=== PATIENT | male | born 1965 | race Caucasian/White ===

== ENCOUNTER 2016-12-25 17:10 | Emergency (ER) | payer BC, MEDICARE ==
[2016-12-25 17:16] VITALS: BP 117/73; PULSE 86; RESP 18; TEMP 97.7; O2SAT 98
--- NOTE | 2016-12-25 18:10 | C.PDOC ---
History Of Present Illness 51 y/o male presents to the ED with complains of pain to bottom right foot x1 week. Pt reports wearing cheap sneakers while hiking and woke up the next day with pain to the ball of right foot. Pt denies trauma. Pt reports hasn't been able to tolerate weight bear at the area and has been changing the way he walks to avoid irritation. Pt uses cane intermittently due to lower back pain but has been using it more often due to foot pain. Today pain is worse with swelling. Pt has been doing epsom salt soaks, no medications taken. Pt takes tramadol for back pain occasionally but not for this issue. Denies redness, fever, chills , weakness, numbness or any other complaints. Time Seen by Provider: 12/25/16 17:53 Chief Complaint (Nursing): Lower Extremity Problem/Injury History Per: Patient History/Exam Limitations: no limitations Onset/Duration Of Symptoms: Days Current Symptoms Are (Timing): Worse Severity: Moderate Recent travel outside of the [place]: No - Ankle/Foot Currently Unable To: Bear Weight Past Medical History Reviewed: Historical Data, Nursing Documentation, Vital Signs Vital Signs: Last Vital Signs Temp 97.7 F 12/25/16 17:13 Pulse 86 12/25/16 17:13 Resp 18 12/25/16 17:13 BP 117/73 12/25/16 17:13 Pulse Ox 98 12/25/16 18:16 - Medical History PMH: Back Problems, HTN Surgical History: Appendectomy Family History: States: Unknown Family Hx - Social History Hx Tobacco Use: No Hx Alcohol Use: No Hx Substance Use: No - Immunization History Hx Tetanus Toxoid Vaccination: No Hx Influenza Vaccination: No Hx Pneumococcal Vaccination: No Review Of Systems Except As Marked, All Systems Reviewed And Found Negative. Constitutional: Negative for: Fever, Chills Musculoskeletal: Positive for: Foot Pain (right foot pain with swelling, no redness) Neurological: Negative for: Weakness, Numbness Physical Exam - Physical Exam Appears: Non-toxic, No Acute Distress Skin: Warm, Dry, No Rash, No Ecchymosis, Other (no calluses, no puncture wounds or erythema, no lesions) Head: Atraumatic, Normacephalic Extremity: Tenderness (at the ball of right foot over 2nd, 3rd and 4th toe; rest of foot nontender), Capillary Refill (<2 seconds), No Deformity, Swelling ( right foot mild generalized) Neurological/Psych: Oriented x3, Normal Speech, Normal Motor, Normal Sensation ED Course And Treatment O2 Sat by Pulse Oximetry: 98 (room air) Pulse Ox Interpretation: Normal Medical Decision Making Medical Decision Making: Questionable plantar irritation. Ordered percocet for pain in ED and ortho boot. Instructed patient to treat pain with tramadol PRN and follow up with [facility] teacher. Disposition Counseled Patient/Family Regarding: Diagnosis, Need For Followup - Disposition Referrals: [facility] [Other] Disposition: HOME/ ROUTINE Disposition Time: 18:09 Condition: IMPROVED Additional Instructions: TAKE TRAMADOL DIRECTED FOR PAIN. POST-OP SHOE NEEDED treat your ball of foot pain with the following non-surgical methods. Stretch your Achilles tendon and strengthen your foot muscles. These exercises help decrease the pressure on your forefeet. Use metatarsal supports such as Properly fitting, supportive footwear. Arch supports Metatarsal pads Shock absorbing shoe insoles and inserts Orthotics Lessen any strenuous activities that involve placing too much weight on your feet, such as jogging or jumping. Use icing or cold therapy. Use anti-inflammatory medication such as ibuprofen or naproxen. Avoid shoes with high heels Instructions: Plantar Fasciitis (ED), Tendinitis (ED) - Clinical Impression Clinical Impression: Metatarsalgia of right foot - Scribe Statement The provider has reviewed the documentation as recorded by the Tutuibyifan Edmondson Provider Attestation: All medical record entries made by the Tutuibyifan were at my direction and personally dictated by me. I have reviewed the chart and agree that the record accurately reflects my personal performance of the history, physical exam, medical decision making, and the department course for this patient. I have also personally directed, reviewed, and agree with the discharge instructions and disposition.
[2016-12-25] MEDS ORDERED: Oxycodone/Acetaminophen 5/325 mg Tab PO STA (18:17)
[2016-12-25] MEDS ORDERED: Oxycodone/Acetaminophen 5/325 mg Tab ONE (18:22)
== END 2016-12-25 18:26 | disposition home or self-care (01) ==
LOC: C.ER 17:10
DX: M77.41 Metatarsalgia, right foot (principal)

== ENCOUNTER 2017-01-06 08:48 | Emergency (ER) | payer MEDICARE ==
[2017-01-06 09:05] VITALS: BP 108/75; PULSE 89; RESP 18; TEMP 98.8; O2SAT 97
--- NOTE | 2017-01-06 09:45 | C.PDOC ---
History Of Present Illness 51 y/o male presents to ED with complaints having a tick on the left upper back , with some discomfort, first noticed today, due to discomfort. pt sts it wasn' t there last night.. Patient reports going camping 1 week ago, did not notice any ticks on himself since then until this morning. Patient denies numbness, fever, chills or any other complaints at this time. Time Seen by Provider: 01/06/17 09:12 Chief Complaint (Nursing): Abnormal Skin Integrity History Per: Patient History/Exam Limitations: no limitations Onset/Duration Of Symptoms: Days Current Symptoms Are (Timing): Still Present Past Medical History Reviewed: Historical Data, Nursing Documentation, Vital Signs Vital Signs: Last Vital Signs Temp 98.8 F 01/06/17 09:01 Pulse 89 01/06/17 09:01 Resp 18 01/06/17 09:01 BP 108/75 01/06/17 09:01 Pulse Ox 97 01/06/17 14:29 - Medical History PMH: Arthritis, Back Problems, HTN Surgical History: Appendectomy Family History: States: Unknown Family Hx - Social History Hx Tobacco Use: No Hx Alcohol Use: Yes Hx Substance Use: No - Immunization History Hx Tetanus Toxoid Vaccination: No Hx Influenza Vaccination: No Hx Pneumococcal Vaccination: No Review Of Systems Constitutional: Negative for: Fever, Chills Cardiovascular: Negative for: Chest Pain Respiratory: Negative for: Shortness of Breath Gastrointestinal: Negative for: Nausea, Vomiting, Diarrhea Physical Exam - Physical Exam Appears: Non-toxic, No Acute Distress Skin: Normal Color, Warm Head: Atraumatic, Normacephalic Oral Mucosa: Moist Respiratory: No Rales, No Rhonchi, No Wheezing Gastrointestinal/Abdominal: Soft, No Tenderness, No Guarding, No Rebound Extremity: Normal ROM, No Deformity, Other (3x3 area of erythema on left upper back with tick at center) Neurological/Psych: Oriented x3, Normal Motor, Normal Sensation, Normal Reflexes ED Course And Treatment O2 Sat by Pulse Oximetry: 97 (RA) Pulse Ox Interpretation: Normal Medical Decision Making Medical Decision Making: tick fairly flat, removed with tweezers; 2 mm area of skin pulled off when pulling tick off, no mouth parts noted left in skin. wound cleansed with soap and water and betadine. tick sent to laboratory for analysis. Disposition Counseled Patient/Family Regarding: Diagnosis, Need For Followup, Rx Given - Disposition Referrals: Timothy Ruby MD [Staff Provider] - Disposition: HOME/ ROUTINE Disposition Time: 09:43 Condition: IMPROVED Additional Instructions: Take doxycycline as prescribed; makes oyur skin more sun sensitive. Watch bite area for any signs of infection. Follow up with your PMD in a few days. Prescriptions: Doxycycline Hyclate 100 mg PO BID #28 capsule Instructions: Tick Bite (ED) Forms: General Discharge Instructions - Clinical Impression Clinical Impression: Tick bite of back - PA / [employer] [employer] / Resident Statement MD/DO has reviewed & agrees with the documentation as recorded. - Scribe Statement The provider has reviewed the documentation as recorded by the Lauren Brito All medical record entries made by the Lauren were at my direction and personally dictated by me. I have reviewed the chart and agree that the record accurately reflects my personal performance of the history, physical exam, medical decision making, and the department course for this patient. I have also personally directed, reviewed, and agree with the discharge instructions and disposition.
== END 2017-01-06 09:54 | disposition home or self-care (01) ==
LOC: C.ER 08:48
DX: S20.462A Insect bite (nonvenomous) of left back wall of thorax, initial encounter (principal); W57.XXXA Bitten or stung by nonvenomous insect and other nonvenomous arthropods, initial encounter

== ENCOUNTER 2017-04-09 23:02 | Emergency (ER) | payer MEDICARE ==
[2017-04-09 23:12] VITALS: O2SAT 96
[2017-04-09 23:30] LABS: BASO # 0.1 K/uL (0.0-0.2); BASO % 0.6 % (0.0-2.0); EOS # 0.3 K/uL (0.0-0.7); EOS % 2.9 % (0.0-4.0); HEMATOCRIT 39.4 % (35.0-51.0); LYMPH # 3.1 K/uL (1.0-4.3); LYMPH % 28.5 % (20.0-40.0); MEAN CELL VOLUME 88.1 fL (80.0-94.0); MEAN CORPUSCULAR HEMOGLOBIN 29.3 pg (27.0-31.0); MEAN CORPUSCULAR HGB CONC 33.3 g/dL (33.0-37.0); MEAN PLATELET VOLUME 8.9 fL (7.2-11.7); MONO # 0.9 K/uL (0.0-0.8); MONO % 8.6 % (0.0-10.0); RED CELL DISTRIBUTION WIDTH 14.5 % (11.5-14.5)
[2017-04-09 23:34] LABS: ALB/GLOB RATIO 1.1 (1.0-2.1); ALKALINE PHOSPHATASE 133 U/L (38-126); ALT/SGPT 249 U/L (21-72); AST/SGOT 163 U/L (17-59); BILIRUBIN,TOTAL 0.8 mg/dL (0.2-1.3); BLOOD UREA NITROGEN 15 mg/dL (9-20); CALCIUM 9.3 mg/dl (8.6-10.4); CARBON DIOXIDE 25 mmol/L (22-30); CHLORIDE 98 mmol/L (98-107); GFR AFRICAN-AMERICAN > 60; GLUCOSE,RANDOM 90 mg/dL (75-110); SODIUM 138 mmol/L (132-148); TOTAL PROTEIN 7.9 g/dL (6.3-8.3)
[2017-04-09] MEDS ORDERED: Sodium Chloride 0.9% 1,000 ML IV ONE (23:53)
--- NOTE | 2017-04-09 23:55 | C.PDOC ---
History Of Present Illness 51 year old male who presents to the ER with a complaint of right sided abdominal pain that began this afternoon, associated with nausea. Denies vomiting, fever, or diarrhea. Chief Complaint (Nursing): Abdominal Pain History Per: Patient History/Exam Limitations: no limitations Onset/Duration Of Symptoms: Hrs Current Symptoms Are (Timing): Still Present Location Of Pain/Discomfort: RUQ, Epigastric Radiation Of Pain To:: None Quality Of Discomfort: Unable To Describe Associated Symptoms: Nausea. denies: Fever, Vomiting, Diarrhea Exacerbating Factors: None Alleviating Factors: None Recent travel outside of the [place]: No Past Medical History Reviewed: Historical Data, Nursing Documentation, Vital Signs Vital Signs: Last Vital Signs Temp 98.2 F 04/10/17 02:27 Pulse 81 04/10/17 02:27 Resp 20 04/10/17 02:27 BP 105/67 04/10/17 02:27 Pulse Ox 96 04/10/17 02:29 - Medical History PMH: Arthritis, Back Problems, Gall Bladder Disease (Gall Stones), HTN Surgical History: Appendectomy Family History: States: Unknown Family Hx - Social History Hx Tobacco Use: No Hx Alcohol Use: Yes Hx Substance Use: No - Immunization History Hx Tetanus Toxoid Vaccination: No Hx Influenza Vaccination: No Hx Pneumococcal Vaccination: No Review Of Systems Constitutional: Negative for: Fever Cardiovascular: Negative for: Chest Pain, Palpitations Respiratory: Negative for: Shortness of Breath Gastrointestinal: Positive for: Nausea, Abdominal Pain. Negative for: Vomiting , Diarrhea Physical Exam - Physical Exam Appears: Non-toxic, Other (Moderate distress) Skin: Normal Color, Warm, Dry Head: Atraumatic, Normacephalic Oral Mucosa: Moist Neck: Normal, Supple Chest: Symmetrical, No Tenderness Cardiovascular: Rhythm Regular, No Murmur Respiratory: Normal Breath Sounds, No Rales, No Rhonchi, No Wheezing Gastrointestinal/Abdominal: Soft, Tenderness (RUQ, Epigastric) Neurological/Psych: Oriented x3, Normal Speech, Normal Cognition ED Course And Treatment - Laboratory Results Result Diagrams: 04/09/17 23:20 04/09/17 23:20 ECG: Interpreted By Me, Viewed By Me ECG Interpretation: Normal Interpretation Of ECG: Sinus rhythmn with sinus arrythmia, normal tracings Rate From EC O2 Sat by Pulse Oximetry: 96 (Room air) Pulse Ox Interpretation: Normal - CT Scan/US Abdominal US Other Rad Studies (CT/US): Read By Radiologist, Radiology Report Reviewed CT/US Interpretation: FINDINGS: Limitations: The study is extremely limited due to reported patient obesity. Liver: The liver is felt to be echogenic and mildly enlarged. Gallbladder: The gallbladder is mildly distended. Dependent calculi. The gallbladder wall is not. thickened. The sonographic Wells's sign is reportedly negative. Common bile duct: Unremarkable as visualized. No dilation. Pancreas: The pancreas is obscured. Right kidney: Unremarkable. No hydronephrosis. Aorta: The aorta and IVC are difficult to evaluate. IMPRESSION : Cholelithiasis without sonographic evidence of acute cholecystitis. Additional findings as described above. Progress Note: Blood work, abdominal US, and urinalysis ordered. Dilaudid, zofran, and IV fluids administered. Disposition Counseled Patient/Family Regarding: Diagnosis - Disposition Referrals: [facility] [Outside] Disposition: HOME/ ROUTINE Disposition Time: 02:24 Condition: IMPROVED Prescriptions: Amoxicillin/Potassium Clav [Augmentin 500-125 Tablet] 1 each PO Q8 #20 tablet traMADol/Acetaminophen [Ultracet 325 MG-37.5 MG] 1 tab PO Q6 #14 tab Instructions: Biliary Colic (ED), Gallstones (ED) Forms: [employer] (Syrian) - Clinical Impression Clinical Impression: Abdominal pain, Gall bladder stones, Gall bladder pain - Scribe Statement The provider has reviewed the documentation as recorded by the Scribe Hipolito Mills All medical record entries made by the Scribe were at my direction and personally dictated by me. I have reviewed the chart and agree that the record accurately reflects my personal performance of the history, physical exam, medical decision making, and the department course for this patient. I have also personally directed, reviewed, and agree with the discharge instructions and disposition.
[2017-04-10] MEDS ORDERED: Sodium Chloride 0.9% 1,000 ML ONE
[2017-04-10 02:27] LABS: RBC URINE < 1 /hpf (0-3); URINE BILIRUBIN NEGATIVE (NEGATIVE); URINE BLOOD NEGATIVE (NEGATIVE); URINE COLOR Yellow (YELLOW); URINE GLUCOSE (UA) NORMAL (Normal); URINE KETONE NEGATIVE (NEGATIVE); URINE LEUKOCYTE ESTERASE NEG Leu/uL (Negative); URINE PROTEIN NEGATIVE (NEGATIVE); URINE UROBILINOGEN NORMAL mg/dL (0.2-1.0); WBC URINE 3 /hpf (0-5)
[2017-04-10 02:28] VITALS: BP 105/67; PULSE 81; RESP 20; TEMP 98.2
--- NOTE | 2017-04-10 08:50 | US ---
Right upper quadrant abdominal ultrasound History: Abdominal pain. Comparison: None available. Technique: Real-time sonography was performed through the right upper quadrant of the abdomen. Findings: Study limited secondary to prominent patient motion and large patient body habitus. Liver: Prominent. 19 centimeters in length. Increased echogenicity suggestive for fatty infiltration versus hepatic parenchymal disease. Clinical correlation. Gallbladder: Mildly distended. Multiple dependant calculi. Normal wall thickness of 2.3 millimeters. Negative sonographic Wells's sign. Common bile duct measures 5 millimeters, within normal limits. Pancreas not well visualized. Limited visualization of the aorta and IVC. Right kidney: 11.2 x 5.5 x 5.5 centimeters. No calculi or hydronephrosis. Impression: Limited study secondary to large patient body habitus. Prominent liver with diffuse increased echogenicity suggestive for fatty infiltration versus hepatic parenchymal disease. Clinical correlation. Cholelithiasis. Limited visualization of the pancreas, aorta, and IVC. These findings were preliminarily reported at 1:26 a.m. on 04/10/[address] Brenda Crowell from [facility].
== END 2017-04-10 03:03 | disposition home or self-care (01) ==
LOC: C.ER 23:02
DX: K80.20 Calculus of gallbladder without cholecystitis without obstruction (principal); R10.11 Right upper quadrant pain
CPT/HCPCS: 76705; 80053; 81001; 83690; 85025; 96361; 96374; 96375; 99285; J1170; J2405; J7040

== ENCOUNTER 2017-04-11 00:18 | Emergency (ER) | payer MEDICARE ==
[2017-04-11 00:24] VITALS: RESP 18; TEMP 97.9
[2017-04-11] MEDS ORDERED: Sodium Chloride 0.9% 1,000 ML IV ONE (00:53)
[2017-04-11] MEDS ORDERED: Sodium Chloride 0.9% 1,000 ML ONE (01:03)
[2017-04-11] MEDS ORDERED: Morphine 4 MG/ML VIAL ONE ×2 (01:03→02:00)
[2017-04-11 01:06] LABS: BASO # 0.1 K/uL (0.0-0.2); BASO % 0.7 % (0.0-2.0); EOS # 0.4 K/uL (0.0-0.7); EOS % 4.2 % (0.0-4.0); HEMATOCRIT 38.2 % (35.0-51.0); LYMPH # 2.9 K/uL (1.0-4.3); LYMPH % 28.5 % (20.0-40.0); MEAN CELL VOLUME 88.3 fL (80.0-94.0); MEAN CORPUSCULAR HEMOGLOBIN 29.5 pg (27.0-31.0); MEAN CORPUSCULAR HGB CONC 33.4 g/dL (33.0-37.0); MEAN PLATELET VOLUME 8.9 fL (7.2-11.7); MONO % 9.8 % (0.0-10.0); RED CELL DISTRIBUTION WIDTH 14.3 % (11.5-14.5); WHITE BLOOD COUNT 10.3 K/uL (4.8-10.8)
[2017-04-11 01:11] VITALS: PULSE 72; O2SAT 96
--- NOTE | 2017-04-11 01:11 | C.PDOC ---
History Of Present Illness 51 year old male who presents to the ER with a complaint of RUQ pain radiating to the back since approximately 22:30. Patient states he took tramadol with no relief to pain. Patient was seen in the ER yesterday for the same symptoms and was diagnosed with gallstones. Patient reports he took the antibiotics he melinda prescribed; denies fever or chills. Time Seen by Provider: 04/11/17 00:44 Chief Complaint (Nursing): Abdominal Pain History Per: Patient History/Exam Limitations: no limitations Onset/Duration Of Symptoms: Hrs Current Symptoms Are (Timing): Still Present Location Of Pain/Discomfort: RUQ Radiation Of Pain To:: Back Quality Of Discomfort: Unable To Describe Associated Symptoms: denies: Fever, Chills Exacerbating Factors: None Alleviating Factors: None Recent travel outside of the [place]: No Past Medical History Reviewed: Historical Data, Nursing Documentation, Vital Signs Vital Signs: Last Vital Signs Temp 97.9 F 04/11/17 00:22 Pulse 72 04/11/17 01:10 Resp 18 04/11/17 01:10 BP 162/66 H 04/11/17 02:21 Pulse Ox 96 04/11/17 01:36 - Medical History PMH: Arthritis, Back Problems, Gall Bladder Disease (Gall Stones), HTN Surgical History: Appendectomy Family History: States: Unknown Family Hx - Social History Hx Tobacco Use: No Hx Alcohol Use: Yes Hx Substance Use: No - Immunization History Hx Tetanus Toxoid Vaccination: No Hx Influenza Vaccination: No Hx Pneumococcal Vaccination: No Review Of Systems Constitutional: Negative for: Fever, Chills Cardiovascular: Negative for: Chest Pain Gastrointestinal: Positive for: Abdominal Pain. Negative for: Nausea, Vomiting Genitourinary: Negative for: Dysuria, Hematuria Physical Exam - Physical Exam Appears: Non-toxic, Other (Uncomfortable) Skin: Normal Color, Warm, Dry Head: Atraumatic, Normacephalic Oral Mucosa: Moist Chest: Symmetrical, No Tenderness Cardiovascular: Rhythm Regular Respiratory: Normal Breath Sounds, No Rales, No Rhonchi, No Wheezing Gastrointestinal/Abdominal: Soft, Tenderness (RUQ), Other (Negative Wells's sign) Neurological/Psych: Oriented x3, Normal Speech, Normal Cognition ED Course And Treatment - Laboratory Results Result Diagrams: 04/11/17 01:02 04/11/17 01:02 O2 Sat by Pulse Oximetry: 96 (Room air) Pulse Ox Interpretation: Normal Medical Decision Making Medical Decision Making: Impression: RUQ abd pain, known gallstones; allergy to toradol Plan: * Labs * IV NS * Morphine Progress: Labs reviewed no leukocytosis or signficant changes from yesterday visit 0135 Patient continues to complain of pain, stating no change. Morphine and donnotal ordered. 0246 Patient now reports pain has much improved. Patient instructed to follow up with PCP and general surgeon for abdominal pain and likely cholecystectomy Disposition Counseled Patient/Family Regarding: Diagnosis, Need For Followup, Rx Given - Disposition Referrals: Timothy Ruby MD [Primary Care Provider] - Disposition: HOME/ ROUTINE Disposition Time: 02:48 Condition: STABLE Additional Instructions: Take pain medications as needed for abdominal pain. Hydrocodone is a narcotic pain medication for severe pain and may make you drowsy. Belladonna is medication for abdominal colic and spasms take as needed. Please follow up with your doctor and general surgery regarding gallstones. Prescriptions: Hydrocodone/Acetaminophen [Hydrocodon-Acetaminophn 10-325] 1 each PO Q8 #15 tablet Phenobarb/Hyoscy/Atropine/Scop [Belladonna-Phenobarbital Tab] 16.2 mg PO Q6 PRN #20 tablet PRN Reason: Gi Distress Instructions: Biliary Colic (GEN) Forms: [facility] (Belizean) - POA Present On Arrival: None - Clinical Impression Clinical Impression: Abdominal colic, Gall bladder stones, Gall bladder pain - Scribe Statement The provider has reviewed the documentation as recorded by the Scribyifan Mills All medical record entries made by the Scribe were at my direction and personally dictated by me. I have reviewed the chart and agree that the record accurately reflects my personal performance of the history, physical exam, medical decision making, and the department course for this patient. I have also personally directed, reviewed, and agree with the discharge instructions and disposition.
[2017-04-11 01:14] LABS: RBC URINE < 1 /hpf (0-3); URINE BILIRUBIN NEGATIVE (NEGATIVE); URINE BLOOD NEGATIVE (NEGATIVE); URINE COLOR Yellow (YELLOW); URINE GLUCOSE (UA) NORMAL (Normal); URINE KETONE NEGATIVE (NEGATIVE); URINE LEUKOCYTE ESTERASE NEG Leu/uL (Negative); URINE PROTEIN NEGATIVE (NEGATIVE); URINE UROBILINOGEN NORMAL mg/dL (0.2-1.0); WBC URINE 1 /hpf (0-5)
[2017-04-11 01:28] LABS: ALKALINE PHOSPHATASE 147 U/L (38-126); ALT/SGPT 294 U/L (21-72); AST/SGOT 212 U/L (17-59); BLOOD UREA NITROGEN 16 mg/dL (9-20); CALCIUM 9.1 mg/dl (8.6-10.4); CARBON DIOXIDE 24 mmol/L (22-30); CHLORIDE 97 mmol/L (98-107); GFR AFRICAN-AMERICAN > 60; GLUCOSE,RANDOM 103 mg/dL (75-110); POTASSIUM 3.8 mmol/L (3.6-5.2); SODIUM 137 mmol/L (132-148)
[2017-04-11] MEDS ORDERED: Belladonna-Phenobarbital PO STA (01:48)
[2017-04-11] MEDS ORDERED: Belladonna-Phenobarbital ONE (02:01)
[2017-04-11 02:22] VITALS: BP 162/66
== END 2017-04-11 03:06 | disposition home or self-care (01) ==
LOC: SUPCPDRO 00:18 → C.ER 00:18
DX: K80.20 Calculus of gallbladder without cholecystitis without obstruction (principal); R10.84 Generalized abdominal pain
CPT/HCPCS: 80053; 81001; 83690; 85025; 96361; 96374; 96375; 96376; 99285; J2270; J2405; J7040

== ENCOUNTER 2017-06-14 19:51 | Emergency (ER) | payer MEDICARE ==
--- NOTE | 2017-06-14 20:16 | C.PDOC ---
History Of Present Illness Patient gave a history of laparoscopic cholecystectomy weeks ago. Complaining of purulent discharge of the umbilical area. Time Seen by Provider: 06/14/17 20:16 Chief Complaint (Nursing): Abdominal Pain History Per: Patient History/Exam Limitations: no limitations Onset/Duration Of Symptoms: Days Current Symptoms Are (Timing): Still Present Severity: Mild Pain Scale Rating Of: 3 Location Of Pain/Discomfort: Periumbilical Radiation Of Pain To:: None Associated Symptoms: denies: Fever, Chills, Nausea, Vomiting, Diarrhea, Loss Of Appetite Exacerbating Factors: Movement Alleviating Factors: None Last Bowel Movement: Today Recent travel outside of the [place]: No Additional History Per: Patient Past Medical History Vital Signs: Last Vital Signs Temp 98.3 F 06/14/17 23:25 Pulse 76 06/14/17 23:25 Resp 18 06/14/17 23:25 BP 108/73 06/14/17 23:25 Pulse Ox 98 06/14/17 23:39 - Medical History PMH: Arthritis, Back Problems, Gall Bladder Disease (Gall Stones), HTN Surgical History: Appendectomy, Cholecystectomy (2017) Family History: States: Unknown Family Hx - Social History Hx Tobacco Use: No Hx Alcohol Use: Yes Hx Substance Use: No - Immunization History Hx Tetanus Toxoid Vaccination: No Hx Influenza Vaccination: No Hx Pneumococcal Vaccination: No Review Of Systems Constitutional: Negative for: Fever, Chills, Sweats Cardiovascular: Negative for: Chest Pain, Palpitations, Orthopnea Respiratory: Negative for: Cough, Shortness of Breath, Hemoptysis Gastrointestinal: Positive for: Abdominal Pain. Negative for: Nausea, Vomiting , Diarrhea Genitourinary: Negative for: Dysuria Neurological: Negative for: Weakness, Numbness, Incoordination, Change in Speech Psych: Negative for: Anxiety, Depression Physical Exam - Physical Exam Appears: Non-toxic Skin: Normal Color, Warm, Dry Nose: Normal Tongue: Normal Appearing Lips: Normal Appearing Throat: Normal Neck: Normal Chest: Symmetrical, No Deformity Cardiovascular: Rhythm Regular, No Edema, No Friction Rub, No Murmur Respiratory: Normal Breath Sounds Gastrointestinal/Abdominal: Tenderness, No Distention, No Guarding, No Rebound, Other (dried purulent discharge thru the umbilical area, minimal tendrness) Back: Normal Inspection Extremity: Normal ROM ED Course And Treatment - Laboratory Results Result Diagrams: 06/14/17 20:26 06/14/17 20:26 O2 Sat by Pulse Oximetry: 98 Disposition Counseled Patient/Family Regarding: Diagnosis - Disposition Referrals: [facility] [Outside] Disposition: HOME/ ROUTINE Disposition Time: 23:33 Condition: STABLE Prescriptions: Amoxicillin/Clavulanate [Augmentin 875 MG-125 MG] 1 tab PO BID #14 tab Instructions: Surgical Site Infections (ED) Forms: [facility] (Hungarian) - POA Present On Arrival: None - Clinical Impression Clinical Impression: Superficial skin infection
[2017-06-14] MEDS ORDERED: Iohexol 240 (50 ml) PO ONE (20:22)
[2017-06-14] MEDS ORDERED: Iohexol 240 (50 ml) ONE (20:29)
[2017-06-14 20:33] LABS: BASO # 0.1 K/uL (0.0-0.2); BASO % 0.6 % (0.0-2.0); EOS # 0.8 K/uL (0.0-0.7); EOS % 6.8 % (0.0-4.0); HEMATOCRIT 36.9 % (35.0-51.0); LYMPH # 4.6 K/uL (1.0-4.3); LYMPH % 39.5 % (20.0-40.0); MEAN CELL VOLUME 88.4 fL (80.0-94.0); MEAN CORPUSCULAR HEMOGLOBIN 29.6 pg (27.0-31.0); MEAN CORPUSCULAR HGB CONC 33.4 g/dL (33.0-37.0); MEAN PLATELET VOLUME 8.7 fL (7.2-11.7); MONO # 0.9 K/uL (0.0-0.8); MONO % 7.5 % (0.0-10.0); RED CELL DISTRIBUTION WIDTH 14.8 % (11.5-14.5); WHITE BLOOD COUNT 11.5 K/uL (4.8-10.8)
[2017-06-14 20:38] LABS: RBC URINE < 1 /hpf (0-3); URINE BILIRUBIN NEGATIVE (NEGATIVE); URINE BLOOD NEGATIVE (NEGATIVE); URINE COLOR Yellow (YELLOW); URINE GLUCOSE (UA) NORMAL (Normal); URINE KETONE NEGATIVE (NEGATIVE); URINE LEUKOCYTE ESTERASE NEG Leu/uL (Negative); URINE PROTEIN NEGATIVE (NEGATIVE); URINE UROBILINOGEN NORMAL mg/dL (0.2-1.0); WBC URINE 1 /hpf (0-5)
[2017-06-14 20:44] LABS: ALB/GLOB RATIO 1.1 (1.0-2.1); ALKALINE PHOSPHATASE 105 U/L (38-126); ALT/SGPT 62 U/L (21-72); AST/SGOT 40 U/L (17-59); BILIRUBIN,TOTAL 0.7 mg/dL (0.2-1.3); BLOOD UREA NITROGEN 22 mg/dL (9-20); CALCIUM 8.7 mg/dl (8.6-10.4); CARBON DIOXIDE 26 mmol/L (22-30); CHLORIDE 98 mmol/L (98-107); GFR AFRICAN-AMERICAN > 60; GLUCOSE,RANDOM 135 mg/dL (75-110); POTASSIUM 3.7 mmol/L (3.6-5.2); SODIUM 134 mmol/L (132-148); TOTAL PROTEIN 7.4 g/dL (6.3-8.3)
[2017-06-14] MEDS ORDERED: Iohexol 300 100 ML IJ ONE (21:22)
--- NOTE | 2017-06-14 22:40 | CT ---
EXAM: CT Abdomen and Pelvis With Intravenous Contrast CLINICAL HISTORY: 52 years old, male; Pain; Abdominal pain; Flank; Left lower quadrant (llq); Additional info: Abd pain TECHNIQUE: Axial computed tomography images of the abdomen and pelvis with intravenous contrast. All CT scans at this facility use one or more dose reduction techniques, viz.: automated exposure control; ma/kV adjustment per patient size (including targeted exams where dose is matched to indication; i.e. head); or iterative reconstruction technique. Coronal and sagittal reformatted images were created and reviewed. CONTRAST: 100 mL of OMNIPAQUE 300 administered intravenously. COMPARISON: No relevant prior studies available. FINDINGS: Lower thorax: Minimal atelectasis/scarring. ABDOMEN: Liver: Mild fatty infiltration. Mild prominence of intrahepatic ducts. Gallbladder and bile ducts: Gallbladder not visualized. No ductal dilation. Pancreas: No ductal dilation. No mass. Spleen: No splenomegaly. Adrenals: No mass. Kidneys and ureters: No mass. No hydronephrosis. Stomach and bowel: No definite mural thickening. No obstruction. Appendix: No findings to suggest acute appendicitis. PELVIS: Bladder: Unremarkable. Reproductive: Mildly enlarged prostate. ABDOMEN and PELVIS: Intraperitoneal space: No significant fluid collection. No free air. Bones/joints: Degenerative changes of spine. No acute fracture. Soft tissues: Mild gynecomastia, LEFT greater than RIGHT. Mild soft tissue thickening along umbilicus. Small RIGHT inguinal hernia containing fat. Vasculature: Unremarkable. No aneurysm. Lymph nodes: Few subcentimeter short axis mesenteric lymph nodes, nonspecific. IMPRESSION: 1. Mild prominence of intrahepatic ducts. Correlate with laboratory values. 2. Soft tissue thickening along umbilicus, nonspecific. Clinical correlation is needed. 3. Incidental/non-acute findings are described above.
[2017-06-14] MEDS ORDERED: cefTRIAXone IV 1 gm in Dextros 50 ML IVPB ONE ×2 (23:18→23:49)
[2017-06-14 23:26] VITALS: BP 108/73; TEMP 98.3
[2017-06-15 00:14] VITALS: PULSE 80; RESP 19; O2SAT 100
== END 2017-06-15 00:18 | disposition home or self-care (01) ==
LOC: C.ER 19:51
DX: L08.89 Other specified local infections of the skin and subcutaneous tissue (principal)
CPT/HCPCS: 74177; 80053; 81001; 83690; 85025; 96374; 99285; J0696; Q9966; Q9967

== ENCOUNTER 2017-06-24 10:48 | Emergency (ER) | payer MEDICARE ==
[2017-06-24 10:53] VITALS: BMI 38.4
[2017-06-24 10:57] VITALS: RESP 20
--- NOTE | 2017-06-24 11:52 | C.PDOC ---
History Of Present Illness Bam Johnson is a 52 year old male who presents complaining of non- traumatic left knee pain and swelling for 2 days. Patient has been using old crutches to ambulate. Denies having similar pain in the past. There is no focal weakness, numbness, or tingling. PMD: Dr. Timothy uRby Time Seen by Provider: 06/24/17 11:03 Chief Complaint (Nursing): Lower Extremity Problem/Injury History Per: Patient History/Exam Limitations: no limitations Onset/Duration Of Symptoms: Days (x 2) Current Symptoms Are (Timing): Still Present Past Medical History Reviewed: Historical Data, Nursing Documentation, Vital Signs Vital Signs: Last Vital Signs Temp 98.2 F 06/24/17 12:07 Pulse 84 06/24/17 12:07 Resp 20 06/24/17 12:07 BP 108/62 06/24/17 12:07 Pulse Ox 95 06/24/17 18:25 - Medical History PMH: Arthritis, Back Problems, Gall Bladder Disease (Gall Stones), HTN Surgical History: Appendectomy, Cholecystectomy (2017) Family History: States: Unknown Family Hx - Social History Hx Tobacco Use: No Hx Alcohol Use: Yes Hx Substance Use: No - Immunization History Hx Tetanus Toxoid Vaccination: No Hx Influenza Vaccination: No Hx Pneumococcal Vaccination: No Review Of Systems Except As Marked, All Systems Reviewed And Found Negative. Musculoskeletal: Positive for: Leg Pain (Left knee) Neurological: Negative for: Weakness, Numbness Physical Exam - Physical Exam Appears: Non-toxic, No Acute Distress Skin: Normal Color, Warm, Dry Head: Atraumatic, Normacephalic Eye(s): bilateral: Normal Inspection, PERRL, EOMI Neck: Normal, Normal ROM Extremity: Tenderness (Mild swelling and tenderness to superior patella), Capillary Refill (<2 SEC), No Deformity, Swelling, No Other (neurological deficits) Neurological/Psych: Oriented x3, Normal Speech, Normal Motor, Normal Sensation ED Course And Treatment O2 Sat by Pulse Oximetry: 95 (RA) Pulse Ox Interpretation: Normal Progress Note: knee X-Ray prelim is positive for tendonitis. Discussed results in detail with patient. Knee immobilizer placed. Pt has his own crutches. Stable for discharge home. Patient will follow up with orthopedist, referral provided for Dr. Gage. Reevaluation Time: 12:03 Reassessment Condition: Improved Medical Decision Making Medical Decision Making: Time: 11:08 Initial Impression: 52 year old male with left knee pain Initial Plan: * Patient given 800 mg Ibuprofen * Pending X-Ray Left Knee Disposition Counseled Patient/Family Regarding: Studies Performed, Diagnosis, Need For Followup, Rx Given - Disposition Referrals: Ish Gage III, MD [Staff Provider] - Disposition: HOME/ ROUTINE Disposition Time: 12:03 Condition: STABLE Additional Instructions: FOLLOW UP WITH ORTHOPEDIST ON MONDAY FOR RE-EVALUATION AND OFFICIAL XRAY REPORT. USE CRUTCHES FOR WALKING AND KNEE IMMOBILIZER FOR WALKING. IF SYMPTOMS GET WORSE OR ANY NEW CONCERNING SYMPTOMS DEVELOP RETURN TO ED. Prescriptions: Ibuprofen [Motrin Tab] 800 mg PO Q8H PRN #15 tab PRN Reason: Pain Instructions: Patellar Tendinitis (ED), Knee Immobilizer (ED) Forms: [employer] (Italian), General Discharge Instructions - Clinical Impression Clinical Impression: Left knee tendonitis - PA / SCIENCE WRITER / Resident Statement MD/DO has reviewed & agrees with the documentation as recorded. - Scribe Statement The provider has reviewed the documentation as recorded by the Tutuibyifan Nguyen All medical record entries made by the Tutuibyifan were at my direction and personally dictated by me. I have reviewed the chart and agree that the record accurately reflects my personal performance of the history, physical exam, medical decision making, and the department course for this patient. I have also personally directed, reviewed, and agree with the discharge instructions and disposition.
[2017-06-24 12:08] VITALS: BP 108/62; PULSE 84; TEMP 98.2
[2017-06-24 12:23] VITALS: O2SAT 95
--- NOTE | 2017-06-24 17:59 | RAD ---
PROCEDURE: Left Knee Radiographs. HISTORY: Pain. COMPARISON: None. FINDINGS: BONES: No acute fracture or destructive bony lesion identified. JOINTS: Talus is narrowing at the medial femorotibial compartment is identified compatible with limited degenerative joint disease. No subluxation or dislocation JOINT EFFUSION: None. OTHER FINDINGS: None. IMPRESSION: No acute fracture or dislocation. Limited degenerative joint changes.
== END 2017-06-24 12:25 | disposition home or self-care (01) ==
LOC: C.ER 10:48
DX: M76.9 Unspecified enthesopathy, lower limb, excluding foot (principal); I10 Essential (primary) hypertension

== ENCOUNTER 2017-10-31 17:23 | Emergency (ER) | payer MEDICARE ==
[2017-10-31 17:28] VITALS: BMI 39.1
[2017-10-31 17:37] VITALS: BP 116/75; PULSE 86; RESP 18; TEMP 98.5; O2SAT 98
--- NOTE | 2017-10-31 19:07 | C.PDOC ---
History Of Present Illness <Maria InesloryEliu Tony - Last Filed: 10/31/17 20:56> <David NORMANBladimir - Last Filed: 11/02/17 07:02> 52 y/o male presents to ED with complaints of left collar bone pain since yesterday. Patient states he slept on left side and woke up with pain, denies chest pain, sob, vomiting, cough or any other complaints at this time. ( David NORMANBladimir) <Eliu Lara E - Last Filed: 10/31/17 20:56> History Per: Patient History/Exam Limitations: no limitations Onset/Duration Of Symptoms: Days Current Symptoms Are (Timing): Still Present <David NORMANBladimir - Last Filed: 11/02/17 07:02> Chief Complaint (Nursing): Upper Extremity Problem/Injury Past Medical History Reviewed: Historical Data, Nursing Documentation, Vital Signs - Medical History PMH: Arthritis, Back Problems, Gall Bladder Disease (Gall Stones), HTN Surgical History: Appendectomy, Cholecystectomy (2017) Family History: States: No Known Family Hx - Social History Hx Tobacco Use: No Hx Alcohol Use: Yes Hx Substance Use: No - Immunization History Hx Tetanus Toxoid Vaccination: No Hx Influenza Vaccination: No Hx Pneumococcal Vaccination: No <David NORMANBladimir - Last Filed: 11/02/17 07:02> Vital Signs: Last Vital Signs Temp 98.5 F 10/31/17 17:27 Pulse 86 10/31/17 17:27 Resp 18 10/31/17 17:27 BP 116/75 10/31/17 17:27 Pulse Ox 98 10/31/17 19:27 Review Of Systems Constitutional: Negative for: Fever, Chills Cardiovascular: Negative for: Chest Pain Respiratory: Negative for: Shortness of Breath Gastrointestinal: Negative for: Nausea, Vomiting Musculoskeletal: Positive for: Neck Pain <David NORMANBladimir - Last Filed: 11/02/17 07:02> Physical Exam - Physical Exam Appears: Non-toxic, No Acute Distress Skin: Warm, Dry, No Rash Head: Atraumatic, Normacephalic Eye(s): bilateral: Normal Inspection Oral Mucosa: Moist Neck: Normal ROM, Supple Chest: Tenderness (point to left sternalclavicular joint) Cardiovascular: Rhythm Regular Respiratory: Normal Breath Sounds, No Rales, No Rhonchi, No Wheezing Gastrointestinal/Abdominal: Soft, No Tenderness, No Guarding, No Rebound Extremity: Normal ROM, Capillary Refill (<2 seconds) Neurological/Psych: Oriented x3, Normal Speech <Bladimir Hernandez DO - Last Filed: 11/02/17 07:02> ED Course And Treatment ECG: Interpreted By Me, Viewed By Me ECG Rhythm: Sinus Rhythm Rate From EC (BPM) O2 Sat by Pulse Oximetry: 98 (RA) Pulse Ox Interpretation: Normal <Bladimir Hernandez DO - Last Filed: 11/02/17 07:02> Disposition Counseled Patient/Family Regarding: Studies Performed, Diagnosis, Need For Followup, Rx Given - Disposition Disposition Time: 20:57 <Eliu Lara - Last Filed: 10/31/17 20:56> <Bladimir Hernandez DO - Last Filed: 11/02/17 07:02> - Disposition Referrals: Mary Dias MD [Staff Provider] - Disposition: HOME/ ROUTINE Condition: STABLE Additional Instructions: Follow up with the application integration specialist for further evaluation and treatment. Forms: [employer] ([place]), General Discharge Instructions - Clinical Impression Clinical Impression: Pain of left sternoclavicular joint <Eliu Lara - Last Filed: 10/31/17 20:56> - Scribe Statement The provider has reviewed the documentation as recorded by the Scribe <David NORMANBladimir - Last Filed: 11/02/17 07:02> - Scribe Statement Ang Brito All medical record entries made by the Scribe were at my direction and personally dictated by me. I have reviewed the chart and agree that the record accurately reflects my personal performance of the history, physical exam, medical decision making, and the department course for this patient. I have also personally directed, reviewed, and agree with the discharge instructions and disposition. (Bladimir Hernandez DO)
--- NOTE | 2017-10-31 20:53 | CT ---
EXAM: CT Chest Without Intravenous Contrast CLINICAL HISTORY: 52 years old, male; Pain; Chest pain and sternal or substernal pain; Additional info: Pain/prominence at left sternoclavicular joint TECHNIQUE: Axial computed tomography images of the chest without intravenous contrast. All CT scans at this facility use one or more dose reduction techniques, viz.: automated exposure control; ma/kV adjustment per patient size (including targeted exams where dose is matched to indication; i.e. head); or iterative reconstruction technique. Coronal and sagittal reformatted images were created and reviewed. COMPARISON: No relevant prior studies available. FINDINGS: Lungs: Unremarkable. No mass. No consolidation. Pleural space: Unremarkable. No pneumothorax. No significant effusion. Heart: Unremarkable. No cardiomegaly. No significant pericardial effusion. Bones/joints: Asymmetric prominence of left sternoclavicular joint. No evidence of osteomyelitis or abnormal fluid collection. No acute fracture. No dislocation. Soft tissues: Unremarkable. Vasculature: Unremarkable. No thoracic aortic aneurysm. Lymph nodes: Unremarkable. No enlarged lymph nodes. IMPRESSION: 1. Asymmetric prominence of left sternoclavicular joint. No evidence of osteomyelitis or abnormal fluid collection. 2. Remainder of findings as above.
--- NOTE | 2017-11-01 08:25 | RAD ---
PROCEDURE: Radiographs of the left clavicle. HISTORY: pain at sternoclavicular joint-no trauma COMPARISON: None. FINDINGS: LEFT CLAVICLE: No acute fracture or focal lesion. JOINTS: Mild acromioclavicular joint degenerative change. SOFT TISSUES: Grossly unremarkable. OTHER FINDINGS: None. IMPRESSION: No demonstrated acute fracture or dislocation.
--- NOTE | 2017-11-01 20:47 | CARD ---
APPROVED REPORT EKG Measurement Heart [id number] MA [id number] <Conclusion> Normal sinus rhythm Normal ECG
== END 2017-10-31 21:00 | disposition home or self-care (01) ==
LOC: C.ER 17:23
DX: M89.8X8 Other specified disorders of bone, other site (principal)